=== PATIENT | female | born 1990 | race Caucasian/White ===

== ENCOUNTER 2016-08-30 22:03 | Emergency (ER) | payer SELFPAY ==
[2016-08-30 22:49] LABS: Urine Bilirubin Negative (NEGATIVE); Urine Blood 50 /ul (NEGATIVE); Urine Ketone Negative (NEGATIVE); Urine Nitrite Negative (NEGATIVE); Urine Protein 15 mg/dL (NEGATIVE); Urine Urobilinogen Normal (NORMAL)
[2016-08-30 23:05] LABS: Urine Appearance Clear; Urine Bacteria 2+; Urine Color Pale Yellow
[2016-08-31] MEDS ORDERED: ONDANSETRON 4 MG TAB.RAPDIS PO ONE (03:07)
[2016-08-31] MEDS ORDERED: CIPROFLOXACIN HCL 250 MG TABLET PO ONE (03:07)
[2016-08-31] MEDS ORDERED: CIPROFLOXACIN HCL 250 MG TABLET ONE (03:09)
[2016-08-31] MEDS ORDERED: ONDANSETRON 4 MG TAB.RAPDIS ONE (03:10)
--- NOTE | 2016-08-31 03:10 | ERNOTE ---
ER Female HPI Stated Complaint: KIDNEY INFECTION Presenting Symptoms: dysuria Time Seen by Provider: 08/31/16 03:02 Source: patient Exam Limitations: no limitations Immunizations: IMMUNIZATION HX Immunizations Up to Date Yes History of Influenza Vaccine No Hx Pneumococcal Vaccination No Allergies/Adverse Reactions: Allergies No Known Allergies Allergy (Verified 12/10/15 12:48) Home Medications: HOME MEDICATIONS Butalb/Acetaminophen/Caffeine [Fioricet 50-300-40 mg Capsule] 1 each PO Q6H PRN #15 capsule 12/07/15 [Last Taken Unknown] Ibuprofen [Motrin] 800 mg PO Q8H PRN #30 tablet 12/07/15 [Last Taken 12/10/15 10 :45] oxyCODONE HCL/ACETAMINOPHEN [Percocet 5-325 mg Tablet] 1 each PO Q6H PRN #30 tablet 12/07/15 [Last Taken Unknown] Butalb/Acetaminophen/Caffeine [Fioricet] 1 - 2 tab PO Q4H PRN #60 tablet [Last Taken 12/10/15 10:45] oxyCODONE HCL/ACETAMINOPHEN [Percocet 5-325 mg Tablet] 1 - 2 each PO Q4H PRN # 45 tablet 12/09/15 [Last Taken 12/10/15 10:45] Promethazine HCl [Phenergan] 25 mg PO Q6H PRN #16 tablet 12/10/15 [Last Taken Unknown] Ciprofloxacin HCl [Cipro] 500 mg PO BID #20 tab 08/31/16 [Last Taken Unknown] Ondansetron [Zofran Odt] 4 mg PO Q4H PRN #10 tab 08/31/16 [Last Taken Unknown] - History of Present Illness Date (Duration): 08/28/16 Timing: Present: constant Onset Location: Present: suprapubic, right flank Radiation: Present: none Activities at Onset: Present: none Modifying Factors - (Improves): Present: other - rubbing it Modifying Factors - (Worsens): Present: other - nothing Associated Symptoms: Present: nausea, dysuria, urinary frequency. Absent: fever /chills, diaphoresis Prior Treatment: Absent: recently seen, treated by physician, currently on antibiotics Review of Systems - Review of Systems Constitutional: Present: chills. Absent: recent illness, fever Respiratory: Absent: shortness of breath Cardiology: Absent: chest pain Gastrointestinal/Abdominal: Present: nausea, vomiting - once with cough, abdominal pain - suprapubic. Absent: diarrhea Genitourinary: Present: frequency, dysuria Musculoskeletal: Present: back pain - Patient's Past Medical History Patient History - Medical: Anxiety, Depression, Headache, Other Patient History - Cardiac/Respiratory: Asthma Patient History - Cancer: No Hx of Cancer Patient History - Surgical Procedures: Other Patient History - Other: None LMP (Calendar): 11/24/15 - Family History Grandfather-Maternal Family History - Medical: , Diabetes Type 2 Family History - Cardiac/Respiratory: No pertinent hx - Social History Living Situations: home Abuse History: No History of abuse Psych History: Hx of Anxiety, Hx of Depression Smoking Status: Current every day smoker Patient requests Smoking Cessation Consult: No Initiate information on Smoking Cessation: No Alcohol Use: none Drug Use: none - Immunizations Immunizations Up to Date: Yes Hx Pneumococcal Vaccination: No History of Influenza Vaccine: No Physical Exam - Physical Exam General Appearance: Present: wd/wn, alert, no apparent distress Eye Exam: Normal inspection: bilateral Respiratory: Present: no respiratory distress, normal breath sounds, no accessory muscle use, lungs clear Cardiovascular/Chest: Present: regular rate, rhythm, no murmur Gastrointestinal/Abdominal: Present: normal bowel sounds, nondistended, soft, tenderness - mild suprapubic Back Exam: Present: no CVA tenderness Extremity Exam: Present: no edema Neurological Exam: Present: alert, oriented, normal mood/affect Skin Exam: Present: normal color, warm/dry ED Progress - Results and Orders Patient's Lab Results:: I have reviewed the patient's lab results. - Vital Signs Patient's Vital Signs:: I have reviewed the patient's vital signs. Vital Signs: Vital Signs 08/30/16 08/30/16 08/31/16 22:18 23:47 00:46 Temperature 36.9 C 37.3 C 36.4 C L Pulse Rate 80 80 70 Respiratory 20 18 18 Rate Blood Pressure 139/60 143/47 138/78 O2 Sat by Pulse 98 98 97 Oximetry - Progress/Reassessment Chief Complaint: Genitourinary Problem Departure Clinical Impression: Pyelonephritis - Departure Disposition: Home self-care Condition: Good Instructions: Pyelonephritis, Adult Referrals: Lima,Umesh, DO [Staff Physician] - Prescriptions: Ciprofloxacin HCl [Cipro] 500 mg PO BID #20 tab Ondansetron [Zofran Odt] 4 mg PO Q4H PRN #10 tab PRN Reason: Nausea And Vomiting
[2016-08-31 03:15] VITALS: BP 147/75
== END 2016-08-31 03:16 | disposition home or self-care (01) ==
LOC: ER 22:03
DX: N12 Tubulo-interstitial nephritis, not specified as acute or chronic (principal); F17.210 Nicotine dependence, cigarettes, uncomplicated